=== PATIENT | male | born 1960 | race Caucasian/White ===

== ENCOUNTER 2020-07-04 19:36 | Emergency (ER) | payer OTHER ==
[~2020-07-04] VITALS: Ht 180.3 cm; Wt 149.7 kg
[2020-07-04] MEDS ORDERED: CLEOCIN HCL300 MG PO (21:20)
[2020-07-04] MEDS ORDERED: CIPRO500 MG PO (21:20)
== END 2020-07-04 21:45 | disposition home or self-care (01) ==
LOC: ED 19:36
DX: S61.451A Open bite of right hand, initial encounter (principal); Z88.0 Allergy status to penicillin; Z88.8 Allergy status to other drugs, medicaments and biological substances; Z91.040 Latex allergy status; Z79.2 Long term (current) use of antibiotics; W54.0XXA Bitten by dog, initial encounter; Y93.89 Activity, other specified; Y92.89 Other specified places as the place of occurrence of the external cause; Y99.8 Other external cause status

== ENCOUNTER → 2022-11-10 | Outpatient (CLI) | payer OTHER ==
[~2022-11-10] MED LIST: CIPRO500 MG PO; CLEOCIN HCL300 MG PO
== END | disposition home or self-care (01) ==
LOC: RESCLI 12:48
PROVIDERS: ATTEND Student in an Organized Health Care Education/Training Program
DX: U09.9 Post COVID-19 condition, unspecified (principal); G47.33 Obstructive sleep apnea (adult) (pediatric); K21.9 Gastro-esophageal reflux disease without esophagitis; M19.90 Unspecified osteoarthritis, unspecified site; E87.6 Hypokalemia; I10 Essential (primary) hypertension; E78.5 Hyperlipidemia, unspecified; Z98.890 Other specified postprocedural states; Z88.0 Allergy status to penicillin; Z79.899 Other long term (current) drug therapy

== ENCOUNTER → 2023-12-09 | Outpatient (CLI) | payer OTHER ==
[~2023-12-09] MED LIST changes: +CELEBREX100 MG PO; +ENDOCET 5-3251 EACH PO
== END | disposition home or self-care (01) ==
LOC: RESCLI 02:06
PROVIDERS: ATTEND Student in an Organized Health Care Education/Training Program
DX: T78.40XA Allergy, unspecified, initial encounter (principal); U09.9 Post COVID-19 condition, unspecified; E78.5 Hyperlipidemia, unspecified; I10 Essential (primary) hypertension; K21.9 Gastro-esophageal reflux disease without esophagitis; M19.90 Unspecified osteoarthritis, unspecified site; G47.33 Obstructive sleep apnea (adult) (pediatric); Z88.0 Allergy status to penicillin; Z91.040 Latex allergy status; Z88.8 Allergy status to other drugs, medicaments and biological substances; Z98.890 Other specified postprocedural states; Z82.49 Family history of ischemic heart disease and other diseases of the circulatory system; Z79.899 Other long term (current) drug therapy; X58.XXXA Exposure to other specified factors, initial encounter